=== PATIENT | female | born 1980 | race Caucasian/White ===

== ENCOUNTER 2020-03-12 10:44 | Outpatient (NON) | payer OTHER, SELFPAY ==
[2020-03-12 22:02] LABS: SARS-CoV-2 RNA PCR Negative
== END 2020-03-12 10:45 ==
PROVIDERS: PCP Physician Assistant; Visit Provider Physician Assistant
DX: Z20.828 Contact with and (suspected) exposure to other viral communicable diseases (principal); R09.89 Other specified symptoms and signs involving the circulatory and respiratory systems
CPT/HCPCS: 87635; C9803; U0003

== ENCOUNTER 2021-10-16 13:58 | Emergency (ER) | payer OTHER, SELFPAY ==
[2021-10-16 14:09] VITALS: BP 142/94; PULSE 74; RESP 16; TEMP 36.4; O2SAT 99
--- NOTE | 2021-10-16 14:16 | ED.URI ---
HPI - URI/Sore Throat General Chief Complaint: Upper Respiratory Infection Stated Complaint: sore throat Time Seen by Provider: 10/16/21 14:16 Source: patient Mode of arrival: ambulatory Limitations: no limitations History of Present Illness HPI Narrative: Blanca Parish a 41 yo female with PMH of HTN, depression, anxiety, who comes to express care with a sore throat that started this morning; no fever, states it is hard to swallow. Has not eaten today, boyfriend has tonsillitis is on antibiotics Related Data Home Medications Medication Instructions Recorded Confirmed alprazolam 0.5 mg tablet 0.5 mg PO QHS PRN 08/14/21 10/16/21 escitalopram oxalate 10 mg tablet 10 mg PO DAILY 08/14/21 10/16/21 lisinopril 10 mg tablet 10 mg PO DAILY 08/14/21 10/16/21 Allergies Allergy/AdvReac Type Severity Reaction Status Date / Time dicyclomine AdvReac Unknown Palpitation Verified 10/16/21 14:08 s Review of Systems Review of Systems: CONSTITUTIONAL: Denies fever, chills, sweats. EYES: Denies visual changes, redness, discharge. ENT: Denies rhinorrhea, congestion, has sore throat, otalgia. CARDIOVASCULAR: Denies chest pain, palpitations, edema. RESPIRATORY: Denies dyspnea, wheezing, cough GASTROINTESTINAL: Denies abdominal pain, nausea, vomiting, diarrhea. GENITOURINARY: Denies dysuria, hematuria, abnormal discharge SKIN: Denies rash or itching. NEUROLOGIC: Denies numbness, or focal weakness. PSYCHIATRIC: Denies anxiety or depression. [facility] Past Medical History Medical History Anxiety disorder HTN (hypertension) Surgical History Surgical History History of dilation and curettage Family History Family History Other Hypertension Kidney disease Social History Social History Smoking status: Never smoker Alcohol intake: current Alcohol use details: socially Substance use: never Substance use type: does not use Additional occupation/education comments: owns on business Gender identity (if verbalized by the patient): Female Sexual Orientation (if Verbalized by the Patient): Straight or Heterosexual Comments At time of signature, I agree with nursing past medical, surgical, social and family history. There is no relevant family history pertinent to the presenting complaint. Exam Narrative: GENERAL: This is a well-nourished, well-developed patient, in mild distress. HEAD: normocephalic, atraumatic. EYES: Sclera clear/white. Vision is grossly intact. EARS: External ears normal, auditory canals clear and without drainage, TMs normal without perforation. Hearing grossly intact. NOSE: External nose normal without nasal discharge, nares without redness, no rhinorrhea. THROAT: Mucous membranes moist, posterior pharynx erythema but uvula appears enlarged NECK: Neck supple, submandibular lymph node enlargement CARDIOVASCULAR: Regular rate and rhythm without murmurs, gallops, or rubs. RESPIRATORY: Clear to auscultation. Breath sounds equal bilaterally. No wheezes, rales, or rhonchi. GASTROINTESTINAL: Abdomen soft, non-tender, SKIN: warm, intact with no suspicious lesions or rash, good texture and turgor. NEURO: awake, alert, and oriented to person, place and time. There were no obvious focal neurologic abnormalities. Steady gait EXTREMITIES: Normal range of motion. BACK: Nontender without deformity Course Course Emergency Course: Patient came to [facility] with 1 day of sore throat (started this morning), no fever Strep test done-negative Because of history of living boyfriend having tonsillitis and her exam started on amoxicillin 8751 twice daily Level of Care: Express Care Visit Vital Signs Vital signs: Vital Signs Temperature 97.5 F L 10/16/21 14:09 Pulse Rate 74
== END 2021-10-16 14:38 | disposition home or self-care (01) ==
PROVIDERS: Emergency Provider Nurse Practitioner; PCP Physician Assistant
DX: L04.9 Acute lymphadenitis, unspecified (principal); J02.9 Acute pharyngitis, unspecified; F41.9 Anxiety disorder, unspecified; I10 Essential (primary) hypertension
CPT/HCPCS: 87081; 87880; 99213; G0463

== ENCOUNTER 2021-12-08 01:04 | Day surgery (SDC) | payer OTHER, SELFPAY ==
--- NOTE | 2021-12-04 14:21 | SUR.PREOP ---
Addendum entered by Jaky Blackman RN 12/05/21 10:30: CALLED PT, LEFT VM TO TAKE ESCITALOPRAM WITH A SIP OF WATER WEDNESDAY MORNING PRIOR TO COMING TO HOSPITAL. INSTRUCTED TO RETURN CALL IF HAS QUESTIONS. Original Note: Report to the Outpatient Waiting Room, entrance under the [facility] located off [facility], at time 0800 on date 12/08/21. OR Time: 1000. - You and your visitor will be asked a series of questions to screen for COVID 19 for your protection. - Only one visitor is allowed at this time. - The patient visitor is requested to leave or wait in car when not with patient. - A mask is required within the hospital. Patients may have clear liquids (water, carbonated beverages, clear teas, apple juice) until 3 hours prior to surgery with a maximum of 20 ounces. - No food from midnight until time of surgery - Infants may have breast milk until 4 hours before surgery, formula 6 hours prior to surgery. - Children will be allowed to drink immediately following surgery. If applicable, please bring a bottle or sippy cup to assist with drinking. Juice, water, soda, and popsicles are readily available. For infants on formula, please bring formula the day of surgery. Pacifiers are allowed. Take the following medications with a SIP of water the morning of surgery: N/A Medications to discontinue per physician N/A Date to take last dose Please no make-up, nail nepalese, hairspray, perfume, deodorant, or body powder the day of surgery. No jewelry (including any body piercings) or valuables the day of surgery, leave them at home. Please take a shower or bath the night before, or the morning of, surgery with an antibacterial soap. Wear comfortable, loose fitting clothing. Children are encouraged to wear pajamas. - Jewelry must be removed prior to entering the operating room. Rings and piercings that are not removed may be cut off. - The hospital will not accept responsibility for valuables. - Please leave all valuables, including medications, at home the day of surgery. If you are going home after surgery, a licensed trash collector truck driver must drive you home. - NO public transportation without another adult. - We recommend that an adult stay with you for 24 hours following discharge. - We also recommend that you do not drive, make important decision, drink alcoholic beverages, or take any drugs that were not prescribed by your health care provider for at least 24 hours after your discharge time. For Pediatric surgeries, we recommend two adults accompany the child home (only one inside the building at this time). Follow any additional instructions given to you from your surgeon. If you or anyone in your household have experienced Covid symptoms in the past week, please notify your surgeon or the nurse liaison at the phone number below for possible testing. Telephone instructions given to PATIENT and asked if any additional questions and then verbalized understanding. Patient advised to call surgeon office or pre surgery nurse liaison [phone] if any additional questions.
--- NOTE | 2021-12-07 21:01 | PM.IMHP ---
H&P: HPI History of Present Illness Date/Time: 12/07/21 21:01 Chief Complaint: Cervical dysplasia Narrative: Viktoria is a 41yo P1021, who presents for scheduled surgery. 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 Colpo showed KALI 2 on one biopsy at 12o'clock. Does not desire future children; will be getting Mirena IUD. Review of Systems Review of Systems: All systems reviewed & are unremarkable except as noted in HPI and below PMFSH Past Medical History Medical History Anxiety disorder HTN (hypertension) Surgical History Surgical History History of dilation and curettage Family History Family History Other Hypertension Kidney disease Social History Social History Smoking status: Never smoker Alcohol intake: current Alcohol use details: socially Substance use: never Substance use type: does not use Living arrangements: alone Additional occupation/education comments: owns on business Gender identity (if verbalized by the patient): Female Sexual Orientation (if Verbalized by the Patient): Straight or Heterosexual Spiritual care concerns: No Meds Home Medications and Allergies Home Medications Medication Instructions Recorded Confirmed Type alprazolam 0.5 mg tablet 0.5 mg PO QHS PRN Anxiety 08/14/21 12/04/21 History escitalopram oxalate 10 mg tablet 10 mg PO DAILY 08/14/21 12/04/21 History (Lexapro) lisinopril 10 mg tablet 10 mg PO DAILY 08/14/21 12/04/21 History Allergies Allergy/AdvReac Type Severity Reaction Status Date / Time dicyclomine AdvReac Unknown Palpitation Verified 10/16/21 14:08 s Exam Const: General: cooperative, healthy appearing, comfortable and no acute distress Resp: Effort & Inspection: normal respiratory effort Cardio: Rate: regular rate GI: Inspection: normal to inspection GI Palp: No abdominal tenderness and Yes Soft to palpation : Other: deferred to OR Skin: General skin exam: normal color Neuro: General: patient oriented x3 Extrem: General: normal to inspection Psych: Appearance: grossly normal Affect: normal affect Attitude: cooperative Assessment and Plan Assessment and plan (1) Moderate dysplasia of cervix (KALI II): Code(s): N87.1 - Moderate cervical dysplasia Status: Acute Plan - Per ASCCP guidelines, proceed with LEEP - Risks and benefits explained in detail
--- NOTE | 2021-12-08 07:03 | WPDHPUPDATE1 ---
History and Physical Update Update Date/Time: 12/08/21 07:03 History and Physical has been reviewed, including an updated exam of the patient. There are NO changes in the patient's condition. Risks, benefits, and alternatives have been discussed and questions answered. Patient agrees to proceed with procedure.
[2021-12-08] MEDS: ACETAMINOPHEN 500 MG TABLET 1000 MG PO (08:19)
[2021-12-08] MEDS: LACTATED RINGERS 1,000 ML 30 ML IV CONT (08:25)
[2021-12-08 08:29] VITALS: BP 144/102; PULSE 98; RESP 16; TEMP 36.5; O2SAT 100
--- NOTE | 2021-12-08 10:05 | P.PNAN_ITS ---
Anes - Initial Pre Proc Eval Procedure: Operation Date: 12/08/21 10:00 Proposed Procedures p Loop Electrical Excision Procedure - Kamilah Ware MD Date/Time: 12/08/21 10:05 Surgeon: Kamilah Ware MD Pre Op Diagnosis: cervical dysplasia Patient Data Age: 41 Gender: F Height: 1.63 m Weight: 82.3 kg Last Vital Signs Temp 36.5 C 12/08/21 08:29 Pulse 98 12/08/21 08:29 Resp 16 12/08/21 08:29 BP 144/102 H 12/08/21 08:29 Pulse Ox 100 12/08/21 08:29 O2 Del Method Room Air 12/08/21 08:29 Allergies Allergy/AdvReac Type Severity Reaction Status Date / Time dicyclomine AdvReac Unknown Palpitation Verified 12/08/21 08:10 s Home Medications Medication Instructions Recorded Confirmed Type alprazolam 0.5 mg tablet 0.5 mg PO QHS PRN Anxiety 08/14/21 12/08/21 History escitalopram oxalate 10 mg tablet 10 mg PO DAILY 08/14/21 12/08/21 History (Lexapro) lisinopril 10 mg tablet 10 mg PO DAILY 08/14/21 12/08/21 History Patient hx anesthesia problems: none Family hx anesthesia problems: none Results Review: All pre-operative results and documents have been reviewed as part of the pre-operative evaluation. [facility] Past Medical History Medical History (Updated 12/08/21 @ 10:06 by Chaz Ayala MD) Anxiety disorder HTN (hypertension) Obesity Surgical History Surgical History History of dilation and curettage Family History Family History Other Hypertension Kidney disease Social History Social History Smoking status: Never smoker Alcohol intake: current Alcohol use details: socially Substance use: never Substance use type: does not use Living arrangements: alone Additional occupation/education comments: owns on business Gender identity (if verbalized by the patient): Female Sexual Orientation (if Verbalized by the Patient): Straight or Heterosexual Spiritual care concerns: No Anes - Eval Final PreProcedure Day of Procedure 12/08/21 10:05 Patient weight: obese Heart: regular rate and rhythm Lungs: clear to auscultation Airway: Mallampati scale class II Last oral intake: >/= 8 hours ASA classification: II Emergent: no Anesthetic plan: proceed Anesthesia type and monitoring: general GIVS and standard monitoring Results Review: All pre-operative results and documents have been reviewed as part of the pre- operative evaluation. Informed Consent: The patient's anesthetic plan and its attendant risks and benefits were discussed with the patient/family/POA. Questions were solicited and answers provided to the satisfaction of the patient/family/POA.
[2021-12-08] MEDS: LIDO 2%/EPINEPHRINE 1:100,000 20 ML VIAL 17 ML INFILTRATE (10:56)
--- NOTE | 2021-12-08 10:58 | P.OP_ITS ---
Procedure Note - Detailed Date of Procedure 12/08/21 Pre-op Diagnosis cervical dysplasia Post-op Diagnosis Same Procedure Performed LEEP with ECC Surgeon Kamilah Ware MD Anesthesia MAC Indications Viktoria is a 41yo P1021, who had an abnormal pap; LGSIL/HPV +. Colpo was performed and showed KALI 2 on one biopsy at 12 o'clock. Findings normal multiparous cerivx; lugol's applied to cervix and only a small area around 12-1o'clock w/o uptake noted. Good hemostasis at end of case. Silk stitch placed at 12o'clock to orient tissue for pathology Description of Procedure Viktoria was taken the operating room where she was placed under sedation without difficulty. She was then prepped and draped in the usual sterile fashion the dorsal lithotomy position with the legs in low Edward stirrups. A time-out was performed. A coated bivalve speculum was placed in the vagina where the cervix was easily identified. The cervix was infiltrated using 12 cc of 2% lidocaine with epinephrine. The cervix was noted to be blanched. Using a wide but shallow loop, 1 pass was made from the patients left to right. An additional pass was made from the patient's right to left to obtain a deeper specimen on that side. The passes were placed together in a stitch was placed at 12:00 p.m. to orient the specimen. The LEEP bed was then cauterized using the roller ball. Good hemostasis was noted. All instruments were removed from the vagina. Sponge, lap, needle, instrument counts were correct at the end the procedure. Patient was awoken and taken to recovery in stable condition with plans of same- day discharge home. Estimated Blood Loss 10 IV Fluids 700 Pathology Yes (stitch at 12 o'clock of cervical biopsy) Complications No immediate complications Condition Stable Disposition Same day [facility] Billing Surgery - Charge Forward: Surgery Billing
[2021-12-08 11:05] VITALS: BP 132/78; PULSE 73; RESP 16; O2SAT 99
[2021-12-08 11:35] VITALS: BP 119/72; PULSE 70; RESP 12
== END 2021-12-08 12:00 | disposition home or self-care (01) ==
PROVIDERS: PCP Physician Assistant; Visit Provider Obstetrics & Gynecology
PROC: 0UBC7ZZ Excision of Cervix, Via Natural or Artificial Opening (ICD-10-PCS; CPT 57522; principal; 2021-12-08 10:00)
DX: N87.1 Moderate cervical dysplasia (principal); I10 Essential (primary) hypertension; F41.9 Anxiety disorder, unspecified; E66.9 Obesity, unspecified; Z68.31 Body mass index [BMI] 31.0-31.9, adult
CPT/HCPCS: 57522; 88305; 88307; A9270; J2250; J2704; J3010; J7120

== ENCOUNTER 2021-12-12 23:33 | Emergency (ER) | payer OTHER, SELFPAY ==
[2021-12-12 23:34] VITALS: BP 149/87; PULSE 81; RESP 22; TEMP 36.3; O2SAT 100
[2021-12-12 23:44] VITALS: PULSE 77; RESP 15; O2SAT 100
[2021-12-12 23:45] VITALS: BP 147/85; PULSE 84; RESP 23; O2SAT 100
[2021-12-12 23:46] VITALS: BP 144/89; PULSE 81; RESP 15; O2SAT 100
[2021-12-12 23:47] VITALS: PULSE 83; RESP 20; O2SAT 100
--- NOTE | 2021-12-12 23:52 | ED.FEMALEGU ---
HPI - Female Genitourinary General Chief complaint: Vaginal Bleeding Stated complaint: leep procedure wednesday and bleeding heavily now Time Seen by Provider: 12/12/21 23:40 History of Present Illness HPI Narrative: Patient is a 41-year-old female here for evaluation of vaginal bleeding today. Patient had a LEEP procedure with Dr. Ware 4 days ago for LGSIL/HPV +, biopsy with KALI-2. Patient was doing well until today when she noticed that she has passed about 6 egg-sized blood clots. Additionally has had some mild abdominal pain over the past several days, none today. No syncope, lightheadedness, fevers, chills, dysuria, hematuria. She is sexually active and is not on control. Related Data Home Medications Medication Instructions Recorded Confirmed alprazolam 0.5 mg tablet 0.5 mg PO QHS PRN Anxiety 08/14/21 12/08/21 escitalopram oxalate 10 mg tablet 10 mg PO DAILY 08/14/21 12/08/21 (Lexapro) lisinopril 10 mg tablet 10 mg PO DAILY 08/14/21 12/08/21 Allergies Allergy/AdvReac Type Severity Reaction Status Date / Time dicyclomine AdvReac Unknown Palpitation Verified 12/12/21 23:38 s Review of Systems Review of Systems: Gen: Denies fevers or chills Eyes: Denies eye pain or visual change ENT: Denies congestion Respiratory: Denies shortness of breath or cough CV: Denies chest pain or palpitations GI: Denies abdominal pain nausea, emesis or diarrhea : reports vaginal bleeding. Musculoskeletal: Denies back pain or muscle pain Neuro: Denies numbness, tingling, weakness or focal weakness Skin: Denies rash Except as documented, all other systems reviewed and negative [facility] Past Medical History Medical History Anxiety disorder HTN (hypertension) Obesity Surgical History Surgical History History of dilation and curettage Family History Family History Other Hypertension Kidney disease Social History Social History Smoking status: Never smoker Alcohol intake: current Alcohol use details: socially Substance use: never Substance use type: does not use Additional occupation/education comments: owns on business Gender identity (if verbalized by the patient): Female Sexual Orientation (if Verbalized by the Patient): Straight or Heterosexual Spiritual care concerns: No Exam Narrative: APPEARANCE: Well appearing, no pain in distress, well-nourished. Head: Normocephalic and atraumatic. EYES: PERRLA/EOMI, conjunctivae clear NOSE: No nasal drainage EARS: External ear normal in appearance THROAT: Oropharynx is clear. Mucous membranes are moist. NECK: Supple. No adenopathy, no masses. RESPIRATORY: Airway patent, respirations nonlabored. Clear to auscultation bilaterally, no rales, rhonchi, wheezing. CARDIOVASCULAR: Regular rate and rhythm without murmurs, rubs, or gallops. : Exam performed with RN radiator core tester. Large blood clots noted in vaginal vault. Black scar tissue at 12 o clock position of cervix. ABDOMINAL: Normoactive bowel sounds. Soft, nontender, nondistended. No rebound tenderness or guarding. MUSCULOSKELETAL: Extremities are warm and well-perfused. Moves all extremities well. No edema. NEURO: Normal speech. No focal neurologic deficits. SKIN: Skin is warm and dry. No rashes. PSYCHIATRIC: Normal affect/mood. Course Consultations Consultation #1: Discussed case with Dr. Horvath, fire controlman for Dr. Ware, recommended application of monsel's solution, if bleeding stops, will see in office. Date: 12/13/21 Time: 01:05 Vital Signs Vital signs: Vital Signs Temperature 97.3 F L 12/12/21 23:34 Pulse Rate 81 12/12/21 23:34 Respiratory Rate 22 H 12/12/21 23:34 Blood Pressure 149/87 H 12/12/21 23:34 Pulse Oximetry 100 12/12/21 23:34 Oxygen Del
[2021-12-13] VITALS (19 sets, daily range): BP systolic 118–135; BP diastolic 70–82; PULSE 65–79; RESP 10–24; O2SAT 95–100
[2021-12-13 00:13] LABS: Basophils Absolute Auto 0.1 K/mm3 (0.0-0.1); Basophils Percent Auto 0.8 % (0.2-1.2); Eosinophils Absolute Auto 0.3 K/mm3 (0-0.3); Eosinophils Percent Auto 2.1 % (0-4.4); Hematocrit 40.6 % (37.0-47.0); Hemoglobin 13.9 g/dL (12.0-15.0); Immature Granulocyte Absolute 0.05 K/mm3 (0.00-0.031); Immature Granulocyte Percent A 0.4 % (0-0.5); Lymphocytes Absolute Auto 3.91 K/mm3 (0.9-3.2); Lymphocytes Percent Auto 29.4 % (18.3-44.2); Mean Corpuscular HGB Conc 34.2 g/dl (32-36); Mean Corpuscular Hemoglobin 33.1 pg (26-34); Mean Corpuscular Volume 96.7 fl (80-100); Mean Platelet Volume 10.7 fl (7.4-10.4); Monocytes Absolute Auto 0.7 K/mm3 (0.1-0.6); Neutrophils Absolute Auto 8.3 K/mm3 (1.3-6.7); Neutrophils Percent Auto 62.3 % (45.5-73.1); Platelet Count Result 231 k/mm3 (150-375); Red Cell Distribution Width 12.3 % (11.5-14.5); White Blood Count 13.3 K/mm3 (4.5-10.0)
== END 2021-12-13 02:02 | disposition home or self-care (01) ==
PROVIDERS: Physician Assistant; Emergency Provider Emergency Medicine; PCP Physician Assistant
DX: N99.820 Postprocedural hemorrhage of a genitourinary system organ or structure following a genitourinary system procedure (principal); I10 Essential (primary) hypertension; E66.9 Obesity, unspecified; Z68.31 Body mass index [BMI] 31.0-31.9, adult; F41.9 Anxiety disorder, unspecified
CPT/HCPCS: 36415; 81025; 85025; 87070; 87491; 87591; 87808; 99284